=== PATIENT | male | born 1995 | race Hispanic/Latino ===

== ENCOUNTER 2021-08-05 13:00 | Emergency (ER) | payer OTHER, SELFPAY ==
--- NOTE | 2021-08-05 13:07 | DI.RAD.S_ITS ---
PROCEDURE: XR FOOT LT MIN 3V INDICATIONS: heel pain after fall TECHNIQUE: 3 views of the foot were acquired. COMPARISON: None. FINDINGS: Bones: Mildly displaced fracture of the posterior calcaneus, best appreciated on the oblique view. Soft tissues: No tibiotalar joint effusion. Achilles tendon appears normal. IMPRESSION: Mildly displaced fracture of the posterior calcaneus as detailed above. Dictated by: Tyler Candelario M.D. on 08/05/2021 at 13:33 Approved by: Tyler Candelario M.D. on 08/05/2021 at 13:35
--- NOTE | 2021-08-05 13:07 | DI.RAD.S_ITS ---
PROCEDURE: XR KNEE RT 1TO2V INDICATIONS: knee pain after fall TECHNIQUE: 2 views of the knee were acquired. COMPARISON: None. FINDINGS: Bones: There is prior fixation of femoral shaft with intramedullary romina seen. Old healed mid to distal femoral shaft fracture is seen incompletely visualized on this study. There is no acute right knee fracture or dislocation. No suspicious intraosseous lesion. Soft tissues: No joint effusion. No suspicious soft tissue calcifications. IMPRESSION: Prior fixation of femur with old healed mid to distal femoral shaft fracture. No acute right knee fracture or dislocation. No joint effusion. Dictated by: Chico Banda M.D. on 08/05/2021 at 13:40 Approved by: Chico Banda M.D. on 08/05/2021 at 13:41
--- NOTE | 2021-08-05 13:07 | DI.RAD.S_ITS ---
PROCEDURE: XR FEMUR RT MIN 2V INDICATIONS: hx of fx with pain after fall TECHNIQUE: 4 views of the femur were acquired. COMPARISON: None. FINDINGS: Bones: Old healed right mid to distal femoral shaft fracture is seen with prior internal fixation. No evidence of hardware loosening or failure. No acute right hip fracture or dislocation. Mild right hip joint osteoarthritic changes are seen. No evidence of avascular necrosis of femoral head. No suspicious bony lesions. Soft tissues: No suspicious soft tissue calcifications or masses. IMPRESSION: Old healed mid to distal right femoral shaft fracture. No gross hardware complication. No acute right femoral fracture or dislocation. Mild right hip joint osteoarthritis. No evidence of avascular necrosis. Dictated by: Chico Banda M.D. on 08/05/2021 at 13:42 Approved by: Chico Banda M.D. on 08/05/2021 at 13:42
--- NOTE | 2021-08-05 13:07 | DI.RAD.S_ITS ---
PROCEDURE: XR PELVIS 1-2V INDICATIONS: R hip pain after fall TECHNIQUE: 1 view(s) of the pelvis acquired. COMPARISON: None. FINDINGS: Bones: No acute fractures or dislocations. Mild right hip joint osteoarthritis is seen. Intramedullary romina and fixation screws in visualized portion of right proximal femur is seen. No suspicious bony lesions. Soft tissues: Visualized bowel gas pattern is normal. No suspicious soft tissue calcifications. IMPRESSION: No acute pelvic or hip fracture. Prior fixation of right femoral shaft. Mild right hip joint osteoarthritis. No evidence of avascular necrosis. Dictated by: Chico Banda M.D. on 08/05/2021 at 13:43 Approved by: Chico Banda M.D. on 08/05/2021 at 13:44
[2021-08-05 13:09] VITALS: BP 137/71; PULSE 76; RESP 16; TEMP 36.4; O2SAT 100; BMI 23.6
--- NOTE | 2021-08-05 13:13 | ED_ITS ---
HPI - General Adult General Chief complaint: Trauma Stated complaint: Trauma Time Seen by Provider: 08/05/21 13:07 Source: patient and EMS Mode of arrival: EMS Limitations: no limitations History of Present Illness HPI narrative: Patient is a 26-year-old male. Was brought in by EMS. In a full body VAC andrade bag. She reported that the patient was at his job site. He had just climbed onto the roof to start his work. Just prior to clipping in for his safety harness he thinks that he stepped on the rope and fell. Was approximately 10 ft. He did not hit his head. No loss of conscious. He did land on his feet. Complaining of left heel pain and right knee pain and right hip pain. No back pain. He did receive fentanyl prior to arrival. No neck pain. Related Data Previous Rx's Medication Instructions Recorded hydrocodone 5 mg-acetaminophen 325 1 tab PO Q4-6H PRN #14 tab 08/05/21 mg tablet Allergies Allergy/AdvReac Type Severity Reaction Status Date / Time No Known Drug Allergies Allergy Verified 08/05/21 13:12 Review of Systems Constitutional Constitutional: Reports as per HPI, Reports system reviewed and no additional complaints, except as documented and Denies headache(s) Eyes Eyes: Denies change in vision ENT Ears, Nose, Mouth, and Throat: Denies vertigo, Denies dizziness, Denies headache(s) and Denies sore throat Cardiovascular Cardiovascular: Denies chest pain and Denies dyspnea Respiratory Respiratory: Denies dyspnea Gastrointestinal Gastrointestinal: Denies abdominal pain Musculoskeletal Comments: Left heel pain, right knee pain, right thigh pain, right hip pain Integumentary/Breasts Skin/Breast: Reports system reviewed and no additional complaints, except as documented Neurologic Neurologic: Reports system reviewed and no additional complaints, except as documented, Denies confusion, Denies vertigo, Denies dizziness and Denies headache(s) Psychiatric Psychiatric: Denies confusion Endocrine Endocrine: Reports system reviewed and no additional complaints, except as documented Hematologic/Lymphatic On Anticoagulants: No Patient History Medical History Right femoral fracture Social History Smoking Status: Never smoker Smoking Status: Never smoker alcohol intake frequency: a few times a week Substance Use Type: marijuana Exam Initial Vital Signs Initial Vital Signs: Vital Signs Temperature 97.6 F 08/05/21 13:09 Pulse Rate 76 08/05/21 13:09 Respiratory Rate 16 08/05/21 13:09 Blood Pressure 137/71 08/05/21 13:09 Pulse Oximetry 100 08/05/21 13:09 Const General: cooperative, healthy appearing, comfortable and well developed [facility] Head: normal to inspection and normocephalic Nose: external nose normal Face and sinus: normal facial exam and no maxillary instability Mouth: oral mucosae normal Teeth and gingiva: dentition normal Eyes Periorbital: periorbital findings normal Pupils: PERRL Chest Chest: No crepitus and No tenderness Resp Effort & Inspection: normal respiratory effort Auscultation: clear to auscultation bilaterally Cardio Rate: regular rate Rhythm: regular rhythm GI Inspection: normal to inspection Palpation: soft, No firm, No guarding and No tender Back/Spine/Pelvis Cervical Spine: No cervical spinal tenderness Thoracic/Lumbar Spine: No paraspinal tenderness, No thoracic spinal tenderness and No lumbar spinal tenderness Sacroiliac Joints: nontender Skin Other: Superficial laceration to the anterior aspect of the right knee. Bruising over the right-sided ASIS Neuro General: patient alert, patient awake, patient oriented x3 and moves all extremities Cranial Nerves: CN's II-XI intact bilaterally Cognition: normal cognition Speech: speech normal Extrem Other: Patient's pelvis is stable but he does have some discomfort over the right hemipelvis. Has discomfort around the right knee. His right distal leg and right ankle and right foot are unremarkable. Does have significant tenderness to the left heel. His left ankle is unremarkable. The rest of his left lower extremities unremarkable. His upper extremities are unremarkable. Psych Appearance: grossly normal and well kempt Procedures Orthopedic Splinting/Casting Injury #1: Side: left Lower Extremity Injury Location: foot Lower Extremity Immobilizer: posterior splint and stirrup splint Other Orthopedic Equipment: crutches Post splinting neuro exam: intact Post splinting vascular exam: intact Placed by: Provider Scores GCS Trent coma scale eye opening: Spontaneous Trent coma scale verbal response: Orientated Trent coma scale motor response: Obey commands Grace coma scale total score: 15 Nexus Score for C-Spine Focal Neurologic deficit present: No Midline spinal tenderness present: No Altered level of conciousness present: No Intoxication present: No Distracting Injury Present: No Nexus Criteria for C-spine: 0 Course Orders Ordered: ED Orders 08/05/21 13:07 XR femur RT min 2V Stat XR foot LT min 3V Stat XR knee RT 1to2V Stat XR pelvis 1-2V Stat 08/05/21 14:01 CT LE LT wo con Stat Discontinued Medications Hydromorphone HCl (Hydromorphone 1 Mg Inj) 1 mg IV NOW ONE Stop: 08/05/21 13:20 Last Admin: 08/05/21 13:46 Dose: 1 mg Documented by: DEBBY Vital Signs Vital signs: Vital Signs - 8 hr 08/05/21 13:09 08/05/21 15:10 Temperature 97.6 F Pulse Rate 76 67 Respiratory Rate 16 16 Blood Pressure 137/71 136/78 Pulse Oximetry 100 98 Medical Decision Making Imaging Data Left foot x-ray: Radiologist's Impression: [address] [address] XRay Report Signed Patient: Stan Joel MR#: [id number] : 1995 Acct:[id number] Age/Sex: 26 / M Date of Service: 08/05/21 Loc: ED Accession Number: [id number] ?? Procedure: XR foot LT min 3V Ordering Provider: Neel Lowe D.O. PROCEDURE:? XR FOOT LT MIN 3V ? INDICATIONS:? heel pain after fall ? TECHNIQUE:? 3 views of the foot were acquired.? ? COMPARISON:? None. ? FINDINGS:? ? Bones:? Mildly displaced fracture of the posterior calcaneus, best appreciated on the oblique view. ? Soft tissues:? No tibiotalar joint effusion.? Achilles tendon appears normal.? ? ? IMPRESSION:? Mildly displaced fracture of the posterior calcaneus as detailed above.? ? ? Dictated by: Tyler Candelario M.D. on 08/05/2021 at 13:33 ? ? Approved by: Tyler Candelario M.D. on 08/05/2021 at 13:35? Right knee x-ray: Radiologist's Impression: [address] [address] XRay Report Signed Patient: Stan Joel MR#: [id number] : 1995 Acct:[id number] Age/Sex: 26 / M Date of Service: 08/05/21 Loc: ED Accession Number: [id number] ?? Procedure: XR knee RT 1to2V Ordering Provider: Neel Lowe D.O. PROCEDURE:? XR KNEE RT 1TO2V ? INDICATIONS:? knee pain after fall ? TECHNIQUE:? 2 views of the knee were acquired.? ? COMPARISON:? None. ? FINDINGS:? ? Bones:? There is prior fixation of femoral shaft with intramedullary romina seen.? Old healed mid to distal femoral shaft fracture is seen incompletely visualized on this study.? There is no acute right knee fracture or dislocation.? No suspicious intraosseous lesion. ? Soft tissues:? No joint effusion.? No suspicious soft tissue calcifications.? ? ? IMPRESSION:? Prior fixation of femur with old healed mid to distal femoral shaft fracture.? No acute right knee fracture or dislocation.? No joint effusion. ? ? Dictated by: Chico Banda M.D. on 08/05/2021 at 13:40 ? ? Approved by: Chico Banda M.D. on 08/05/2021 at 13:41?? Right femur x-ray: Radiologist's Impression: [place] [address] XRay Report Signed Patient: Stan Joel MR#: [id number] : 1995 Acct:[id number] Age/Sex: 26 / M Date of Service: 08/05/21 Loc: ED Accession Number: [id number] ?? Procedure: XR femur RT min 2V Ordering Provider: Neel Lowe D.O. PROCEDURE:? XR FEMUR RT MIN 2V ? INDICATIONS:? hx of fx with pain after fall ? TECHNIQUE:? 4 views of the femur were acquired.? ? COMPARISON:? None. ? FINDINGS:? ? Bones:? Old healed right mid to distal femoral shaft fracture is seen with prior internal fixation.? No evidence of hardware loosening or failure.? No acute right hip fracture or dislocation.? Mild right hip joint osteoarthritic changes are seen.? No evidence of avascular necrosis of femoral head.? No suspicious bony lesions.? ? Soft tissues:? No suspicious soft tissue calcifications or masses.? ? IMPRESSION:? Old healed mid to distal right femoral shaft fracture.? No gross hardware complication.? No acute right femoral fracture or dislocation.? Mild right hip joint osteoarthritis.? No evidence of avascular necrosis. ? ? Dictated by: Chico Banda M.D. on 08/05/2021 at 13:42 ? ? Approved by: Chico Banda M.D. on 08/05/2021 at 13:42? pelvis x-ray: Radiologist's Impression: [address] [address] XRay Report Signed Patient: Stan Joel MR#: [id number] : 1995 Acct:[id number] Age/Sex: 26 / M Date of Service: 08/05/21 Loc: ED Accession Number: [id number] ?? Procedure: XR pelvis 1-2V Ordering Provider: Neel Lowe D.O. PROCEDURE:? XR PELVIS 1-2V ? INDICATIONS:? R hip pain after fall ? TECHNIQUE:? 1 view(s) of the pelvis acquired.? ? COMPARISON:? None. ? FINDINGS:? ? Bones:? No acute fractures or dislocations.? Mild right hip joint osteoarthritis is seen. ?Intramedullary romina and fixation screws in visualized portion of right proximal femur is seen.? No suspicious bony lesions.? ? Soft tissues:? Visualized bowel gas pattern is normal.? No suspicious soft tissue calcifications.? ? IMPRESSION:? No acute pelvic or hip fracture.? Prior fixation of right femoral shaft.? Mild right hip joint osteoarthritis.? No evidence of avascular necrosis. ? ? Dictated by: Chico Banda M.D. on 08/05/2021 at 13:43 ? ? Approved by: Chico Banda M.D. on 08/05/2021 at 13:44?? CT LE: Radiologist's Impression: [address] [address] [address] Scan Report Signed Patient: Stan Joel MR#: [id number] : 1995 Acct:[id number] Age/Sex: 26 / M Date of Service: 08/05/21 Loc: ED Accession Number: [id number] ?? Procedure: CT LE LT wo con Ordering Provider: Neel Lowe D.O. PROCEDURE:? CT LE LT W CON ? INDICATIONS:? L calcaneal fracture ? TECHNIQUE:? Noncontrast 1-1.5 mm axial sections acquired from above the tibiotalar joint to the bottom of the calcaneus, with coronal and sagittal reformats.? ? COMPARISON:? [facility], CR, XR FOOT LT MIN 3V, 08/05/2021, 13:05. ? FINDINGS:? Image quality:? Excellent.? ? Bones:? There is a mildly comminuted fracture involving the lateral plantar aspect of the posterior calcaneus.? No fracture extension to the subtalar or calcaneocuboid joints.? Remaining visualized osseous structures appear intact.? No dislocations.? ? Soft tissues:? There is subcutaneous edema and soft tissue swelling in the plantar aspect of the hindfoot.? There is a small tibiotalar joint effusion. The Achilles, flexor, extensor, and peroneal tendons appear intact. ? IMPRESSION:? ? 1. Mildly comminuted fracture involving the lateral plantar aspect of the posterior calcaneus. ? ? Dictated by: Doug Warner M.D. on 08/05/2021 at 14:28 ? ? Approved by: Doug Warner M.D. on 08/05/2021 at 14:33?? MDM Narrative Medical decision making narrative: Patient arrived immobilized in a air backboard. No head injury. Cervical spine cleared by nexus criteria. I felt that his injuries he presented with were not distracting to the point to where I could not clear his cervical spine. He had no back tenderness to include lower back pain. His x-rays are unremarkable except for the calcaneal fracture. I did discuss the case with Dr. Huber on-call with Orthopedic surgery who recommended a CT scan. She stated that the patient could be placed in a splint. Made nonweightbearing and have him follow-up in her clinic within the next week. Patient did have a superficial abrasion to the anterior aspect of his right knee that needed no intervention here in the ER. He does have a contusion to his right hip. I feel we can hold on further images for now. He has no abdominal tenderness. Patient was given return precautions and follow-up instructions. He expressed understanding and agreement. Discharge Plan Departure Patient Disposition: Home Clinical Impression: Calcaneal fracture, Abrasion of skin, Contusion Instructions: How to Use Crutches, DI for Foot Fracture, How to Take Care of Your Splint Activity Restrictions/Additional Instructions: The splint that was placed today needs to be treated like cast. You need to keep it on and keep it clean and keep it dry. Use the crutches. Do not put pressure on your right foot. Contact the orthopedic provider at the number provided below for a follow-up this week. Return to the emergency department for any new or worsening symptoms Prescriptions: New hydrocodone-acetaminophen 5-325 mg tablet 1 tab PO Q4-6H PRN (Reason: pain) Qty: 14 RF: 0 Referrals: Crystal Ferrell MD [Physician] -
[2021-08-05] MEDS: HYDROMORPHONE 1 MG INJ IV (13:46)
--- NOTE | 2021-08-05 14:01 | DI.CT.S_ITS ---
PROCEDURE: CT LE LT W CON INDICATIONS: L calcaneal fracture TECHNIQUE: Noncontrast 1-1.5 mm axial sections acquired from above the tibiotalar joint to the bottom of the calcaneus, with coronal and sagittal reformats. COMPARISON: [facility], CR, XR FOOT LT MIN 3V, 08/05/2021, 13:05. FINDINGS: Image quality: Excellent. Bones: There is a mildly comminuted fracture involving the lateral plantar aspect of the posterior calcaneus. No fracture extension to the subtalar or calcaneocuboid joints. Remaining visualized osseous structures appear intact. No dislocations. Soft tissues: There is subcutaneous edema and soft tissue swelling in the plantar aspect of the hindfoot. There is a small tibiotalar joint effusion. The Achilles, flexor, extensor, and peroneal tendons appear intact. IMPRESSION: 1. Mildly comminuted fracture involving the lateral plantar aspect of the posterior calcaneus. Dictated by: Doug Warner M.D. on 08/05/2021 at 14:28 Approved by: Doug Warner M.D. on 08/05/2021 at 14:33
--- NOTE | 2021-08-05 15:00 | PC.NURSE ---
Dr. Lowe and ALEXANDER applying posterior splint to LLE. Pt tolerating well.
[2021-08-05 15:10] VITALS: BP 136/78; PULSE 67; RESP 16; O2SAT 98
== END 2021-08-05 15:47 | disposition home or self-care (01) ==
PROVIDERS: Emergency Provider Emergency Medicine
DX: S92.001A Unspecified fracture of right calcaneus, initial encounter for closed fracture (principal); S80.211A Abrasion, right knee, initial encounter; S70.01XA Contusion of right hip, initial encounter; W13.2XXA Fall from, out of or through roof, initial encounter; Y99.0 Civilian activity done for income or pay
CPT/HCPCS: 29515; 72170; 73552; 73560; 73630; 73700; 96374; 99285; J1170